=== PATIENT | male | born 1950 | race Caucasian/White ===

== ENCOUNTER 2025-02-21 19:30 | Emergency (ER) | payer OTHER ==
[~2025-02-21] VITALS: Ht 165.1 cm; Wt 57.6 kg
[2025-02-21 19:59] VITALS: BP 116/78; O2SAT 96
[2025-02-21] MEDS ORDERED: JANUMET 50-5001 EACH (20:00)
[2025-02-21] MEDS ORDERED: PLAVIX75 MG (20:00)
[2025-02-21] MEDS ORDERED: TAMSULOSIN HCL0.4 MG (20:00)
[2025-02-21] MEDS ORDERED: GLIPIZIDE XL10 MG (20:01)
[2025-02-21] MEDS ORDERED: ROSUVASTATIN CA10 MG (20:01)
[2025-02-21 21:28] LABS: BASO % 0.2 % (0.1-1.2); EOS # 0.00 (0.04-0.54); EOS % 0.0 % (0.7-7.0); LYMPH # 0.32 (1.18-3.74); LYMPH % 7.1 % (19.3-53.1); MEAN PLATELET VOLUME 9.90 fl (9.4-12.4); MONO # 0.36 (0.24-0.82); MONO % 8.0 % (4.7-12.5); NEUT # 3.78 (1.56-6.13); NEUT % 84.5 % (34.0-71.1); RED CELL DISTRIBUTION WIDTH 13.9 % (11.6-14.4)
[2025-02-21 22:07] LABS: ALT/SGPT 27.0 U/L (12-78); AST/SGOT 25.0 U/L (15-37); BILIRUBIN TOTAL 0.47 mg/dL (0.3-1.2); BUN CREA RATIO 17.0 (7.0-25.0); CREATININE SERUM 1.5 mg/dL (0.70-1.30); GFR 45.38; GLOBULINA 3.5 G/DL (2.4-3.5); OSMOLALITY SERUM 291.0 MOSM/KG (275-295)
[2025-02-21 22:13] LABS: COVID-19 AG NEGATIVE (NEGATIVE)
[2025-02-21 22:15] LABS: GLUCOSE FASTING 296.0 mg/dL (65-100)
[2025-02-22] MEDS ORDERED: ACETAMINOPHEN 500 MG GEL..CAP PO STA (04:16)
[2025-02-22] MEDS ORDERED: ACETAMINOPHEN 500 MG GEL..CAP PO ONE (04:39)
[2025-02-22 04:59] LABS: URINE APPEARANCE Clear; URINE BILIRRUBIN Negative (NEGATIVE); URINE BLOOD Moderate; URINE COLOR Yellow; URINE KETONE 15 (NEGATIVE); URINE LEUKOCYTE Negative; URINE NITRATE Negative; URINE UROBILINOGEN 0.2 E.U./dl
[2025-02-22 05:00] LABS: URINE BACTERIA 384.3 uL (0.0-1933); URINE EPITHELIAL CELLS 11.1 uL (0.0-38.8); URINE RBC 33.4 uL (0.0-20.8); URINE WBC 4.1 uL (0.0-23.2)
[2025-02-22 05:25] LABS: URINE CAST > 21.83 uL (0.0-1.40); URINE GLUCOSE >=1000 MG/DL (NEGATIVE); URINE PROTEIN 100 (NEGATIVE)
[2025-02-22] MEDS ORDERED: TAMSULOSIN HCL 0.4 MG CAP PO STA (05:59)
[2025-02-22] MEDS ORDERED: 0.9 % SODIUM CHLORIDE 1,000 ML IV STA (05:59)
[2025-02-22] MEDS ORDERED: TAMIFLU45 MG PO (06:23)
[2025-02-22] MEDS ORDERED: TAMSULOSIN HCL0.4 MG PO (06:23)
[2025-02-22] MEDS ORDERED: TAMSULOSIN HCL 0.4 MG CAP PO ONE (06:25)
== END 2025-02-22 08:44 | disposition home or self-care (01) ==
LOC: ER 19:30
PROVIDERS: General Practice
DX: J10.1 Influenza due to other identified influenza virus with other respiratory manifestations (principal); Z88.8 Allergy status to other drugs, medicaments and biological substances; E03.8 Other specified hypothyroidism; E78.00 Pure hypercholesterolemia, unspecified; N18.9 Chronic kidney disease, unspecified; E11.65 Type 2 diabetes mellitus with hyperglycemia; Z79.84 Long term (current) use of oral hypoglycemic drugs; Z20.822 Contact with and (suspected) exposure to COVID-19
CPT/HCPCS: 36415; 71046; 82803; 93005; 96365; 99283; J7030